=== PATIENT | female | born 1935 | race Caucasian/White ===

== ENCOUNTER 2018-11-05 19:30 | Inpatient (IN) | payer OTHER ==
--- NOTE | 2018-11-05 20:26 | RAD REPORT ---
EXAM DESCRIPTION: Lisa Single View11/05/2018 8:05 pm CLINICAL HISTORY: Shortness of breath COMPARISON: none FINDINGS: Extensive bilateral alveolar opacities Heart is borderline enlarged IMPRESSION: Extensive bilateral pulmonary opacities probably representing pneumonia, less likely pul monary edema
[2018-11-05 20:28] LABS: Protime INR 1.63
[2018-11-05] MEDS ORDERED: NA CHLORIDE 0.9% 1,000 ML ONE ×2 (20:31→21:20)
[2018-11-05 20:41] LABS: Absolute Lymphocytes (CBC) 1.8 K/uL (0.7-4.9); Basophils % 0.2 % (0-1.3); Hematocrit 39.3 % (36.0-45.0); Lymphocytes % 4.4 % (15.3-44.8); MPV 7.5 fL (7.6-11.3); Monocytes % 0.8 % (3.3-12.3); RBC Red Blood Cell Count 4.13 M/uL (3.86-4.86)
[2018-11-05 20:43] LABS: ALT/SGPT 30 U/L (12-78); AST/SGOT 62 U/L (15-37); Albumin 1.5 g/dL (3.4-5.0); Alkaline Phosphatase 108 U/L (45-117); BUN Blood Urea Nitrogen 72 mg/dL (7-18); Bicarbonate 26 mmol/L (21-32); Bilirubin Direct 0.1 mg/dL (0-0.2); Bilirubin Total 0.3 mg/dL (0.2-1.0); Creatine Phosphokinase 33 U/L (26-192); Glucose Level 143 mg/dL (74-106); Lipase 126 U/L (73-393); Potassium 3.3 mmol/L (3.5-5.1); Protein, Total 7.4 g/dL (6.4-8.2); Sodium Level 140 mmol/L (136-145); Troponin (Emerg Dept Use Only) < 0.02 ng/mL (0.0-0.045)
--- NOTE | 2018-11-05 20:56 | ER ---
Nurse's Notes [facility] Name: Shanice Grant Age: 83 yrs Sex: Female : 1935 Arrival Date: 11/05/2018 Time: 19:33 Bed 2 Private MD: Diagnosis: Sepsis, unspecified organism;Pneumonia, unspecified organism;Hypoxemia Presentation: 11/05 19:35 Presenting complaint: EMS states: EMS called to [facility] ea staff reports pt was having respiratory distress, pt was placed on 2 L of O2 per NC at facility, EMS report pt was sating 79%, pt placed on non rebreather per EMS sats increased to 90%, 20 G IV initiated to right wrist and 200 ml of NS given per EMS. Transition of care: patient was received from another setting of care (long-term care facility), [facility]. Onset of symptoms was November 05, 2018. Risk Assessment: Do you want to hurt yourself or someone else? Patient reports no desire to harm self or others. Initial Sepsis Screen: Does the patient meet any 2 criteria? HR > 90 bpm. Does the patient have a suspected source of infection? No. Patient's initial sepsis screen is negative. Care prior to arrival: 20 G IV to right wrist and 200 mls of NS per EMS. 19:35 Method Of Arrival: EMS: [facility] 19:35 Acuity: PATRICK 2 ea Historical: - Allergies: 19:52 No Known Allergies; ea - Home Meds: 19:52 acetaminophen 325 mg Oral cap every 6 hours [Active]; Aricept 23 mg Oral tab 1 tab once ea daily [Active]; ascorbic acid (vitamin C) 500 mg tab daily [Active]; azithromycin 250 mg Oral tab 1 tab once daily [Active]; Depakote 125 mg Oral TbEC 2 tabs once daily [Active]; levothyroxine 25 mcg tab 1 tab once daily [Active]; ipratropium-albuterol 0.5 mg-3 mg(2.5 mg base)/3 mL Inhl nebu [Active]; meclizine 25 mg Oral chew 2 tabs once daily [Active]; prednisone 20 mg Oral tab once daily [Active]; Remeron 15 mg Oral tab 1 tab once daily [Active]; zinc sulfate 220 (50) mg Oral cap [Active]; - PMHx: 19:52 COPD; Dementia; Hypothyroidism; Hyperlipidemia; Hypertension; Depression; ea - Immunization history:: Adult Immunizations up to date. - Social history:: Smoking status: unknown. - Ebola Screening: : No symptoms or risks identified at this time. Screenin:43 Abuse screen: Denies threats or abuse. Nutritional screening: No deficits noted. ea Tuberculosis screening: No symptoms or risk factors identified. Fall Risk IV access (20 points). Assessment: 19:53 General: Appears uncomfortable, Behavior is quiet. Pain: Unable to use pain scale. ea FLACC scale score is 5 out of 10. Neuro: Level of Consciousness is awake, lethargic, Oriented to none. Cardiovascular: Patient's skin is warm and dry. Respiratory: Airway is patent Respiratory effort is labored, Respiratory pattern is tachypnea. Derm: Skin is dry, Skin is pale, Skin temperature is warm. 21:52 Reassessment: Patient and/or family updated on plan of care and expected duration. Pain ea level reassessed. Pt resting with eyes closed, pt awakes to verbal stimulus. Pt continues to be tachypneic. Pt family made decision to just keep pt comfortable. 22:16 Reassessment: Reassessment: Pt resting with eyes closed, respirations are tachypneic, ea pt remains on non breather, pt tolerating well. No s/s of pain or discomfort noted at this time. Family remains at bedside. 23:39 Reassessment: Patient and/or family updated on plan of care and expected duration. Pain ea level reassessed. Report called to Charity LEDEZMA on fourth floor. Pt admitted via stretcher per game technician, on non rebreather, pt tolerating well. No s/s of pain or discomfort noted at this time. Pt accompanied by son. Vital Signs: 19:42 BP 120 / 52; Pulse 112; Resp 30; Temp 98.7(A); Pulse Ox 89% on Non-rebreather mask; ea Weight 68.04 kg; Height 6 ft. 0 in. (182.88 cm); Pain 0/10; 20:00 BP 117 / 66; Pulse 113; Resp 27; Pulse Ox 89% on Non-rebreather mask; ea 21:32 BP 114 / 44; Pulse 110; Resp 28; Temp 98(TE); Pulse Ox 95% ; rv 22:15 BP 118 / 48; Pulse 110; Resp 30; Pulse Ox 87% on 10% Non-rebreather mask; ea 23:00 BP 105 / 44; Pulse 109; Resp 27; Pulse Ox 89% on 10% Non-rebreather mask; rv 23:44 BP 105 / 42; Pulse 111; Resp 30; Temp 98; Pulse Ox 92% on 10% Non-rebreather mask; rv 19:42 Body Mass Index 20.34 (68.04 kg, 182.88 cm) ea ED Course: 19:33 Patient arrived in ED. rv 19:35 Jaydon Littlejohn MD is Attending Physician. gs 19:41 Triage completed. ea 19:41 Arm band placed on right wrist. Patient placed in an exam room, on a stretcher, on ea oxygen, on environmental monitoring technician, on pulse oximetry. 19:42 Patient has correct armband on for positive identification. Placed in gown. Bed in low ea position. Call light in reach. Side rails up X2. 19:52 Violeta San RN is Primary Nurse. ea 20:07 Chest Single View XRAY In Process Unspecified. EDMS 20:30 Maintain EMS IV. Dressing intact. Good blood return noted. Site clean \T\ dry. Gauge \T\ rv site: G20 RIGHT WRIST. 20:51 Notified ED physician of a critical lab result(s). lactate 2.2. aa1 20:55 Kamlesh Mckinnon MD is Hospitalizing Provider. gs 23:31 No provider procedures requiring assistance completed. Patient admitted, IV remains in ea place. Administered Medications: 20:33 Drug: NS 0.9% 1000 ml Route: IV; Rate: 125 ml/hr; Site: right antecubital; ea 23:44 Follow up: IV Status: Infusion continued upon admission rv 21:05 Drug: Zosyn 3.375 grams Route: IVPB; Infused Over: 60 mins; Site: right wrist; rv 22:18 Follow up: IV Status: Completed infusion; IV Intake: 100ml ea 21:10 Drug: NS 0.9% 1000 ml Route: IV; Rate: 1 bolus; Site: right wrist; rv 22:18 Follow up: IV Status: Completed infusion; IV Intake: 1000ml ea 22:19 Drug: LevaQUIN 750 mg Volume: 150 ml; Route: IVPB; Infused Over: 90 mins; Site: right ea wrist; 23:41 Follow up: IV Status: Completed infusion rv Intake: 22:18 IV: 1000ml; Total: 1000ml. ea 22:18 IV: 100ml; Total: 1100ml. ea Outcome: 20:55 Decision to Hospitalize by Provider. gs 21:00 Admitted to Med/surg accompanied by nurse, via stretcher, with oxygen, with chart, ea Report called to Charity LEDEZMA 21:00 Condition: stable 21:00 Instructed on Family instructed on need for admit 23:42 Patient left the ED. rv Signatures: Dispatcher [employer] EDMS Alyssa Reece RN RN aa1 Violeta San RN Jaydon Álvarez ea, MD MD Deep Taveras RN RN rv Corrections: (The following items were deleted from the chart) 19:55 19:42 BP 120 / 52; Pulse 112bpm; Resp 19bpm; Pulse Ox 89% Non-rebreather mask; Temp ea 98.7F Axillary; 68.04 kg; Height 6 ft. 0 in.; BMI: 20.3; Pain 0/10; ea 23:50 22:16 Reassessment: ea ea 23:52 23:39 Reassessment: Patient and/or family updated on plan of care and expected ea duration. Pain level reassessed. Report called to Charity LEDEZMA on fourth floor. Pt admitted via stretcher per game technician, on non rebreather, pt tolerating well. No s/s of pain or discomfort noted at this time. Pt accompanied by son. ea
--- NOTE | 2018-11-05 20:56 | EDPHYS ---
Physician Documentation [facility] Name: Shanice Grant Age: 83 yrs Sex: Female : 1935 Arrival Date: 11/05/2018 Time: 19:33 Bed 2 Private MD: ED Physician Jaydon Littlejohn HPI: 11/05 20:52 This 83 yrs old Female presents to ER via EMS with complaints of sob. gs 20:52 Onset: The symptoms/episode began/occurred 5 day(s) ago, and became worse and became gs persistent. Duration: The symptoms are continuous. Associated signs and symptoms: Pertinent positives: non-productive cough, fever. Severity of symptoms: At their worst the symptoms were severe in the emergency department the symptoms are unchanged. The patient has experienced similar episodes in the past, a few times. treated [place] pneumonia last 2 weeks. Historical: - Allergies: 19:52 No Known Allergies; ea - Home Meds: 19:52 acetaminophen 325 mg Oral cap every 6 hours [Active]; Aricept 23 mg Oral tab 1 tab once ea daily [Active]; ascorbic acid (vitamin C) 500 mg tab daily [Active]; azithromycin 250 mg Oral tab 1 tab once daily [Active]; Depakote 125 mg Oral TbEC 2 tabs once daily [Active]; levothyroxine 25 mcg tab 1 tab once daily [Active]; ipratropium-albuterol 0.5 mg-3 mg(2.5 mg base)/3 mL Inhl nebu [Active]; meclizine 25 mg Oral chew 2 tabs once daily [Active]; prednisone 20 mg Oral tab once daily [Active]; Remeron 15 mg Oral tab 1 tab once daily [Active]; zinc sulfate 220 (50) mg Oral cap [Active]; - PMHx: 19:52 COPD; Dementia; Hypothyroidism; Hyperlipidemia; Hypertension; Depression; ea - Immunization history:: Adult Immunizations up to date. - Social history:: Smoking status: unknown. - Ebola Screening: : No symptoms or risks identified at this time. ROS: 20:52 All other systems are negative. gs Exam: 20:52 Head/Face: Normocephalic, atraumatic. Eyes: Pupils equal round and reactive to light, gs extra-ocular motions intact. Lids and lashes normal. Conjunctiva and sclera are non-icteric and not injected. Cornea within normal limits. Periorbital areas with no swelling, redness, or edema. ENT: Nares patent. No nasal discharge, no septal abnormalities noted. Tympanic membranes are normal and external auditory canals are clear. Oropharynx with no redness, swelling, or masses, exudates, or evidence of obstruction, uvula midline. Mucous membranes moist. Neck: Trachea midline, no thyromegaly or masses palpated, and no cervical lymphadenopathy. Supple, full range of motion without nuchal rigidity, or vertebral point tenderness. No Meningismus. 20:52 Abdomen/GI: Soft, non-tender, with normal bowel sounds. No distension or tympany. No guarding or rebound. No evidence of tenderness throughout. Back: No spinal tenderness. No costovertebral tenderness. Full range of motion. Skin: Warm, dry with normal turgor. Normal color with no rashes, no lesions, and no evidence of cellulitis. MS/ Extremity: Pulses equal, no cyanosis. Neurovascular intact. Full, normal range of motion. 20:52 Constitutional: The patient appears lethargic. 20:52 Cardiovascular: Rate: tachycardic, Rhythm: regular, Pulses: no pulse deficits are appreciated. 20:52 Respiratory: Exam negative for bronchial sounds, tachypnea, severe repiratory distress is noted. 20:52 Neuro: Orientation: Not oriented to place, time, Motor: moves all fours. Vital Signs: 19:42 BP 120 / 52; Pulse 112; Resp 30; Temp 98.7(A); Pulse Ox 89% on Non-rebreather mask; ea Weight 68.04 kg; Height 6 ft. 0 in. (182.88 cm); Pain 0/10; 20:00 BP 117 / 66; Pulse 113; Resp 27; Pulse Ox 89% on Non-rebreather mask; ea 21:32 BP 114 / 44; Pulse 110; Resp 28; Temp 98(TE); Pulse Ox 95% ; rv 22:15 BP 118 / 48; Pulse 110; Resp 30; Pulse Ox 87% on 10% Non-rebreather mask; ea 23:00 BP 105 / 44; Pulse 109; Resp 27; Pulse Ox 89% on 10% Non-rebreather mask; rv 23:44 BP 105 / 42; Pulse 111; Resp 30; Temp 98; Pulse Ox 92% on 10% Non-rebreather mask; rv 19:42 Body Mass Index 20.34 (68.04 kg, 182.88 cm) ea MDM: 19:47 Patient medically screened. 20:52 Differential diagnosis: CHF exacerbation, Chronic Obstructive Pulmonary Disease gs Myocardial Infarction pneumonia, Sepsis. Data reviewed: vital signs, nurses notes, detention records. Counseling: I had a detailed discussion with the patient and/or guardian regarding: the historical points, exam findings, and any diagnostic results supporting the discharge/admit diagnosis, the need for further work-up and treatment in the hospital. 11/05 19:51 Order name: Basic Metabolic Panel 11/05 19:51 Order name: Blood Culture Adult (2) 11/05 19:51 Order name: CBC with Diff 11/05 19:51 Order name: CPK 11/05 19:51 Order name: Lactate 11/05 19:51 Order name: LFT's; Complete Time: 20:48 11/05 19:51 Order name: Lipase; Complete Time: 20:48 11/05 19:51 Order name: Procalcitonin 11/05 19:51 Order name: Protime (+inr); Complete Time: 20:38 11/05 19:51 Order name: Troponin (emerg Dept Use Only); Complete Time: 20:48 11/05 19:51 Order name: Urine Microscopic Only 11/05 19:52 Order name: Basic Metabolic Panel; Complete Time: 20:48 EDGA 11/05 19:52 Order name: Blood Culture [facility] 11/05 19:53 Order name: CBC with Automated Diff [facility] 11/05 19:51 Order name: Chest Single View XRAY; Complete Time: 20:38 11/05 19:51 Order name: Accucheck; Complete Time: 21:36 11/05 19:51 Order name: Cardiac monitoring; Complete Time: 21:36 11/05 19:51 Order name: EKG - Nurse/Tech; Complete Time: 21:36 11/05 19:51 Order name: IV Saline Lock - Large Bore; Complete Time: 21:36 11/05 19:53 Order name: Creatine Phosphokinase; Complete Time: 20:48 EDGA 11/05 21:27 Order name: Urine Dipstick--Ancillary (enter results) ar5 11/05 22:10 Order name: Urine Culture [facility] 11/05 22:16 Order name: Manual Differential [facility] 11/05 22:48 Order name: NPO [facility] 11/05 22:48 Order name: Troponin I [facility] 11/05 23:36 Order name: Lactate Sepsis 2 HR Follow-up [facility] 11/05 19:51 Order name: Labs collected and sent; Complete Time: 21:36 11/05 19:51 Order name: O2 Per Protocol; Complete Time: 21:36 11/05 19:51 Order name: O2 Sat Monitoring; Complete Time: 21:36 11/05 19:51 Order name: Urine Dipstick-Ancillary (obtain specimen); Complete Time: 21:36 Administered Medications: 20:33 Drug: NS 0.9% 1000 ml Route: IV; Rate: 125 ml/hr; Site: right antecubital; ea 23:44 Follow up: IV Status: Infusion continued upon admission rv 21:05 Drug: Zosyn 3.375 grams Route: IVPB; Infused Over: 60 mins; Site: right wrist; rv 22:18 Follow up: IV Status: Completed infusion; IV Intake: 100ml ea 21:10 Drug: NS 0.9% 1000 ml Route: IV; Rate: 1 bolus; Site: right wrist; rv 22:18 Follow up: IV Status: Completed infusion; IV Intake: 1000ml ea 22:19 Drug: LevaQUIN 750 mg Volume: 150 ml; Route: IVPB; Infused Over: 90 mins; Site: right ea wrist; 23:41 Follow up: IV Status: Completed infusion rv Disposition: 20:52 Critical Care:. gs Disposition: 11/05/18 20:55 Hospitalization ordered by Kamlesh Mckinnon for Inpatient Admission. Preliminary diagnosis are Sepsis, unspecified organism, Pneumonia, unspecified organism, Hypoxemia. - Bed requested for Telemetry/MedSurg (Inpatient). - Status is Inpatient Admission. rv - Condition is Stable. - Problem is new. - Symptoms have improved. UTI on Admission? Yes Critical care time excluding procedures: 20:52 Critical care time: Bedside Care: 10 minutes, Consultation: 10 minutes, Family Intervention: 10 minutes. Total time: 30 minutes Signatures: Dispatcher [employer] Kathie Payton RN RN cg Antunez, Elena, RN RN ea Starr, Jaydon, MD MD Deep Taveras, RN RN rv Corrections: (The following items were deleted from the chart) 20:56 20:55 Hospitalization Ordered by Kamlesh Mckinnon MD for Inpatient Admission. Preliminary diagnosis is Sepsis, unspecified organism; Pneumonia, unspecified organism. Bed requested for Telemetry/MedSurg (Inpatient). Status is Inpatient Admission. Condition is Stable. Problem is new. Symptoms have improved. UTI on Admission? Yes. 22:58 20:56 11/05/2018 20:55 Hospitalization Ordered by Kamlesh Mckinnon MD for Inpatient cg Admission. Preliminary diagnosis is Sepsis, unspecified organism; Pneumonia, unspecified organism; Hypoxemia. Bed requested for Telemetry/MedSurg (Inpatient). Status is Inpatient Admission. Condition is Stable. Problem is new. Symptoms have improved. UTI on Admission? Yes. 23:42 22:57 11/05/2018 20:55 Hospitalization Ordered by Kamlesh Mckinnon MD for Inpatient rv Admission. Preliminary diagnosis is Sepsis, unspecified organism; Pneumonia, unspecified organism; Hypoxemia. Bed requested for Telemetry/MedSurg (Inpatient). Status is Inpatient Admission. Condition is Stable. Problem is new. Symptoms have improved. UTI on Admission? Yes. cg
[2018-11-05] MEDS ORDERED: PIPER/TAZO/NS 3.375gm 3.375 GM/100 ML BAG ONE (21:20)
[2018-11-05] MEDS ORDERED: Levofloxacin500mg IV 500 MG/100 ML BAG IV ONE (21:20)
[2018-11-05 21:35] LABS: Urine Blood 2+ (NEG); Urine Glucose NEGATIVE (NEG); Urine Protein 2+ (NEG)
[2018-11-05 22:09] LABS: Urine Bacteria >50 /HPF (<20); Urine Culture Reflex Order REFLEXED
[2018-11-05 22:17] LABS: Blood Morphology Comment NOTED (NOT SEEN); Platelet Estimate ADEQ; Polychromasia SLIGHT; Smudge Cells PRESENT; Toxic Granulation PRESENT
[2018-11-05] MEDS ORDERED: ACETAMINOPHEN 500 MG TAB PO PRN (22:28)
[2018-11-05] MEDS ORDERED: ACETAMINOPHEN 650MG/RECT SUPP RECT PRN (22:28)
[2018-11-05] MEDS ORDERED: ALPRAZOLAM 0.25 MG TABLET PO PRN (22:28)
[2018-11-05] MEDS ORDERED: ONDANSETRON 4 MG/2 ML VIAL IV PRN (22:28)
[2018-11-05] MEDS ORDERED: NA CHLORIDE 0.9% 1,000 ML IV SCH (23:00)
[2018-11-06] MEDS: ALBUTEROL 2.5 MG/3 ML NEB SOL NEB SCH ×2 (02:00→08:00)
[2018-11-06] MEDS: IPRATROPIUM BROM 0.5MG/2.5ML NEB SCH ×2 (02:00→08:00)
[2018-11-06] MEDS ORDERED: KCL 20 MEQ/100 mL IVPB 20 MEQ/100 ML BAG IV SCH (03:00)
[2018-11-06] MEDS ORDERED: PIPER/TAZO/NS 3.375gm 3.375 GM/100 ML BAG IVPB SCH ×2 (04:00→09:00)
[2018-11-06 05:49] LABS: Basophils % 0.3 % (0-1.3); Eosinophils % 4.4 % (0-4.4); Hematocrit 38.6 % (36.0-45.0); Lymphocytes % 2.3 % (15.3-44.8); MPV 7.8 fL (7.6-11.3); Monocytes % 1.4 % (3.3-12.3); RBC Red Blood Cell Count 3.96 M/uL (3.86-4.86)
[2018-11-06 06:12] LABS: Magnesium 3.1 mg/dL (1.8-2.4); Phosphorus 8.4 mg/dL (2.5-4.9)
[2018-11-06] MEDS ORDERED: LORazepam 2 MG/ML VIAL IV PRN (07:19)
[2018-11-06] MEDS ORDERED: MORPHINE 4 MG/ML SYR IV PRN (07:19)
[2018-11-06 07:25] LABS: Anisocytosis 1+; Blood Morphology Comment NOTED (NOT SEEN); Platelet Estimate ADEQ; Toxic Granulation PRESENT
--- NOTE | 2018-11-06 08:05 | P.HP ---
Date of Service: 11/05/18 [id number]
--- NOTE | 2018-11-06 08:53 | EKG ---
Test Date: 2018-11-05 Test Time: 20:25:29 Wrapper Hand: SIVA MEASUREMENT RESULTS: Intervals: Rate: 113 IL: 120 QRSD: 72 QT: 286 QTc: 392 [place]: P: 66 IL: 120 QRS: -53 T: 49 INTERPRETIVE STATEMENTS: Sinus tachycardia Possible Left atrial enlargement Left anterior fascicular block Anteroseptal infarct, age undetermined Abnormal ECG No previous ECG available for comparison Electronically Signed On 11-06-18 08:52:38 CDT by Luis Quinn
[2018-11-06] MEDS ORDERED: ENOXAPARIN 40 MG/0.4 ML SQ SCH (09:00)
--- NOTE | 2018-11-06 09:01 | HP ---
Date of Admission: 11/05/2018 Reason For Admission: Respiratory distress. History Of Present Illness: This is an 83-year-old female, who has been living at a senior care for the last 4 years. She has had a significant decline over the last week. Prior to this about 4 years ago, she was on hospice care because she was not eating and drinking and her medical power of supervisor weaving is her son, he felt that she had given up. They decided to do hospice, however, she was able to get off hospice after 6 months. The patient since that time has been doing well up until a few weeks ago when her son noticed that she has slowed down on how much she was eating and drinking. About 4 days ago, he had talked to her and she was tired and did not want any interventions. Since she was not improving, the senior care sent her into the emergency room. The patient appears to have multifocal pneumonia. She has respiratory distress with significant leukocytosis. Her white count is 40,000. She is having tachycardia and hypotension. Heart rate is 112. Blood pressure has been running 100 over 50s. The patient has desatted with O2 saturation of 89% on a non-rebreather. After speaking to the son, we are going to go ahead and make her a do not resuscitate. We will proceed with comfort measures only. We are going to go ahead and try to get hospice established for respiratory failure as well as Alzheimer's dementia. Continue morphine, Ativan, and we will continue fluids and antibiotics for now until we get hospice set up. The patient is not expected to survive more than 48 hours per her current clinical condition. Review of Systems: A 10-point review of systems is unable to be obtained. Past Medical History: Hypertension, COPD, hypothyroidism, depression, dyslipidemia, and dementia. Past Surgical History: Unable to obtain. Allergies: NO KNOWN DRUG ALLERGIES. Medications: Home medications on the senior care chart have been reviewed. Family History: Noncontributory. Social History: The patient does not smoke or drink or do any drugs. Physical Examination: Vital Signs: Temp of 97, heart rate was 115, respiratory rate 30, saturating 89 % on nonrebreather, blood pressure 100/50. General: The patient is lethargic and unarousable. HEENT: Within normal limits. Cardiovascular: Tachycardic with systolic ejection murmur. Lungs: Diminished bilaterally. Abdomen: Soft, nontender, nondistended. Bowel sounds positive. Extremities: No clubbing, no cyanosis, no edema. Neurologic: The patient is not following commands. She is lethargic and unresponsive. Skin: Mild appearance. Assessment: 1. The patient with respiratory failure. 2. Nosocomial/healthcare-acquired pneumonia. 3. Leukocytosis. 4. Septic shock. 5. History of Alzheimer's dementia. Plan: At this time is to continue with IV antibiotics. We are going to make patient a [id number]. Comfort measures will proceed. The patient will be put on morphine and Ativan to make the patient comfortable at this time . The family does not want her to suffer. We are going to try to get hospice established. The patient's prognosis is very poor and she is unexpected to survive over the next 48 hours. We will continue with supportive care while hospice is established, and she will probably need inpatient hospice because of her declining clinical condition. UDAY Voice ID: [id number] DANISH
--- NOTE | 2018-11-06 10:02 | P.DS ---
Admission Date: 11/05/18 Discharge Date: 11/06/18 Primary Care Provider: [facility] resident Disposition: HOSPICE-MEDICAL FACILITY Discharge Condition: CRITICAL Reason for Admission: Respiratory failure Consultations: none Procedures: CXR: Bilateral pneumonia Medical Problem List: Acute respiratory failure secondary to bilateral nosocomial pneumonia with septic shock complicated with COPD exacerbation Dementia with failure to thrive Hypothyroidism History of hypertension Hyperlipidemia Protein moderate malnutrition Brief History of Present Illness: 83-year-old female presented to the emergency room from the [facility]. Most of the information came from the son who has medical power of trademark attorney. Patient previously on hospice about 4 years ago. She was transition off hospice at that time. She has been at the intermediate for about 5 years. Most recently she was treated for pneumonia at the intermediate. Over the past week she has been having poor oral intake. Her condition has significantly declined. Patient became more tired and short of breath. In the ER she was evaluated. Patient found to have multifocal bilateral pneumonia. Patient was in significant respiratory distress with elevated leukocytosis. Patient was tachypneic and hypotensive. Patient was admitted for further treatment. Power trademark attorney discussed advanced directives. Patient is do not resuscitate. Power of trademark attorney was considering inpatient hospice. Patient with underlying dementia , COPD, hypertension and hyperlipidemia. Hospital Course: Patient presented with poor oral intake and declining health. Patient recently treated at the intermediate for pneumonia. Patient previously in hospice. Patient found to have acute respiratory failure secondary to multi focal nosocomial bilateral pneumonia complicated with COPD exacerbation. This is also complicated with history of dementia, hypertension and hyperlipidemia. Case discussed at length with son who has medical power of trademark attorney. Over the past week. Her condition has significantly declined. Patient has had poor oral intake. Patient malnourished. Advanced directives address in detail with the son. Patient is do not resuscitate. Hospice education provided. Son wishes for the patient to be with inpatient hospice. Patient with poor prognosis with imminent. Son wishes for inpatient hospice to be arranged soon. Patient will be discharged to inpatient hospice. Will continue with comfort measures. Antibiotics to be discontinued. Will provide medication for pain, agitation. Further orders to be done by inpatient hospice. Vital Signs/Physical Exam: Temp Pulse Resp BP Pulse Ox 95.3 F L 87 32 H 77/46 L 94 11/06/18 08:00 11/06/18 08:00 11/06/18 08:00 11/06/18 08:00 11/06/18 08:00 General: Cachectic, Other (Patient obtunded. No response to pain or stimulation. Venti mask in place.) HEENT: Atraumatic, Other (Dry mucous membranes) Neck: Supple Respiratory: Crackles/rales, Expiratory wheezes (Bilateral) Cardiovascular: Normal pulses, Regular rate/rhythm Gastrointestinal: Normal bowel sounds, Soft and benign, Non-distended Integumentary: Other (Muscle wasting to the upper lower extremities including torso. Patient cachectic appearing.) Neurological: Other (Patient obtunded.) Laboratory Data at Discharge: WBC 44.3 K/uL (4.3-10.9) H* 11/06/18 05:39 Hgb 12.4 g/dL (12.0-15.0) 11/06/18 05:39 Hct 38.6 % (36.0-45.0) 11/06/18 05:39 Plt Count 245 K/uL (152-406) 11/06/18 05:39 PT 18.9 SECONDS (9.5-12.5) H 11/05/18 20:10 INR 1.63 11/05/18 20:10 Sodium 140 mmol/L (136-145) 11/05/18 20:10 Potassium 3.3 mmol/L (3.5-5.1) L 11/05/18 20:10 BUN 72 mg/dL (7-18) H 11/05/18 20:10 Creatinine 0.99 mg/dL (0.55-1.3) 11/05/18 20:10 Glucose 143 mg/dL (74-106) H 11/05/18 20:10 Phosphorus 8.4 mg/dL (2.5-4.9) H 11/06/18 05:39 Magnesium 3.1 mg/dL (1.8-2.4) H 11/06/18 05:39 Total Bilirubin 0.3 mg/dL (0.2-1.0) 11/05/18 20:10 AST 62 U/L (15-37) H 11/05/18 20:10 ALT 30 U/L (12-78) 11/05/18 20:10 Alkaline Phosphatase 108 U/L (45-117) 11/05/18 20:10 Troponin I < 0.02 ng/mL (0.0-0.045) 11/06/18 02:15 Lipase 126 U/L (73-393) 11/05/18 20:10 Home Medications: Arginine/Ascorbate Sod/Gregorio AC [Arginaid Powder] 1 each PO DAILY 11/06/18 Ascorbic Acid [Vitamin C] 500 mg PO DAILY 11/06/18 Azithromycin 250 mg PO SEECOM 11/06/18 Divalproex [Depakote Sprinkle] 2 cap PO BID 11/06/18 Donepezil HCl [Aricept] 23 mg PO BEDTIME 11/06/18 Ipratropium/Albuterol Sulfate [Iprat-Albut 0.5-3(2.5) mg/3 ml] 3 ml IH PRN PRN 11/06/18 Levothyroxine Sodium 25 mcg PO DAILY 11/06/18 Lovastatin 20 mg PO BEDTIME 11/06/18 Meclizine HCl [Antivert] 2 tab PO Q12H PRN 11/06/18 Multivitamin with Minerals [Multivitamins with Minerals] 1 each PO BEDTIME 11/06 predniSONE [Deltasone] 10 mg PO SEECOM 11/06/18 Patient Discharge Instructions: Patient to be admitted to inpatient hospice. Hospice to further address medication for pain and agitation. Continue with comfort measures. Patient is do not resuscitate. Diet: NPO Activity: Bedrest Time spent managing pt's care (in minutes): 55
[2018-11-06] MEDS ORDERED: ALBUTEROL 2.5 MG/3 ML NEB SOL NEB PRN (10:12)
[2018-11-06] MEDS ORDERED: IPRATROPIUM BROM 0.5MG/2.5ML NEB PRN (10:12)
[2018-11-06] MEDS ORDERED: SCOPOLAMINE HYDROBROMIDE PATCH TD SCH (10:30)
== END 2018-11-06 13:29 | disposition hospice, inpatient (51) | DRG 871 ==
LOC: ER 19:30 → ERHOLD 23:07 → 4TH 23:12 → ERHOLD 23:15 → 4TH 23:23
PROVIDERS: ADMIT Hospitalist; ATTEND Hospitalist
DX: A41.9 Sepsis, unspecified organism (principal); R65.21 Severe sepsis with septic shock; J96.00 Acute respiratory failure, unspecified whether with hypoxia or hypercapnia; J18.9 Pneumonia, unspecified organism; J44.0 Chronic obstructive pulmonary disease with (acute) lower respiratory infection; J44.1 Chronic obstructive pulmonary disease with (acute) exacerbation; E46 Unspecified protein-calorie malnutrition; Y95 Nosocomial condition; R62.7 Adult failure to thrive; Z68.20 Body mass index [BMI] 20.0-20.9, adult; E03.9 Hypothyroidism, unspecified; F03.90 Unspecified dementia, unspecified severity, without behavioral disturbance, psychotic disturbance, mood disturbance, and anxiety; E78.5 Hyperlipidemia, unspecified
CPT/HCPCS: 36415; 71045; 80048; 80076; 81003; 81015; 82550; 83605; 83690; 83735; 83880; 84100; 84145; 84484; 85025; 85610; 87040; 87077; 87086; 87088; 87186; 87205; 93005; 96361; 96365; 96366; 96367; 99285; J1650; J2543; J7030

== ENCOUNTER 2018-11-06 13:32 | Inpatient (IN) | payer OTHER ==
[2018-11-06] MEDS ORDERED: MORPHINE 2 MG/ML SYR IV PRN (13:42)
[2018-11-06] MEDS ORDERED: LORazepam 2 MG/ML VIAL IV PRN (13:43)
[2018-11-06] MEDS ORDERED: ACETAMINOPHEN 650MG/RECT SUPP PR PRN (13:44)
[2018-11-06] MEDS ORDERED: BISACODYL 10 MG RECTAL SUPP PR PRN (13:44)
[2018-11-06] MEDS ORDERED: SCOPOLAMINE HYDROBROMIDE PATCH TD SCH (14:00)
== END 2018-11-06 20:00 | disposition expired | DRG 951 ==
LOC: 4TH 13:32
PROVIDERS: ADMIT Family Medicine; ATTEND Family Medicine
DX: Z51.5 Encounter for palliative care (principal); J96.90 Respiratory failure, unspecified, unspecified whether with hypoxia or hypercapnia
CPT/HCPCS: J2270